=== PATIENT | female | born 1960 | race Caucasian/White ===

== ENCOUNTER 2017-07-05 08:50 | Emergency (ER) | payer OTHER ==
[~2017-07-05] VITALS: Ht 162.6 cm; Wt 122.0 kg
[~2017-07-05 08:50] MED LIST: ADVAIR 250/501 DISK IH; FLEXERIL5 MG PO; LIDODERM 5% P1 PATCH TD; MOTRIN IB200 MG PO; NAPROSYN500 MG PO; NORCO 5/3251 TABLET PO; VITAMIN D3400 UNI2 PO
[2017-07-05] MEDS ORDERED: ULTRAM50 MG PO (11:29)
[2017-07-05 12:37] VITALS: BP 109/70
== END 2017-07-05 12:37 | disposition home or self-care (01) ==
LOC: EME 08:50
DX: M17.11 Unilateral primary osteoarthritis, right knee (principal); M79.89 Other specified soft tissue disorders; Z87.891 Personal history of nicotine dependence; Z91.041 Radiographic dye allergy status
CPT/HCPCS: 73564; 93971; 99281; 99283

== ENCOUNTER 2017-10-21 12:05 | Emergency (ER) | payer OTHER ==
[~2017-10-21] VITALS: Ht 165.1 cm; Wt 122.9 kg
[~2017-10-21 12:05] MED LIST changes: +ULTRAM50 MG PO
[2017-10-21] MEDS ORDERED: PREDNISONE5 MG PO (15:15)
[2017-10-21 15:28] VITALS: BP 143/88
== END 2017-10-21 15:29 | disposition home or self-care (01) ==
LOC: EME 12:05
DX: J02.9 Acute pharyngitis, unspecified (principal); Z91.040 Latex allergy status; Z87.891 Personal history of nicotine dependence
CPT/HCPCS: 87651 90; 99281; 99284; J0561; J2930

== ENCOUNTER 2018-01-26 21:07 | Emergency (ER) | payer OTHER ==
[~2018-01-26] VITALS: Ht 165.1 cm; Wt 114.4 kg
[~2018-01-26 21:07] MED LIST changes: +PREDNISONE5 MG PO
[2018-01-26 22:49] LABS: BASOPHIL (%) 0.2 % (0-1); EOSINOPHIL (%) 0.3 % (0-5); HEMATOCRIT 43.2 % (36.0-46.0); HEMOGLOBIN 14.3 G/DL (11.9-15.5); IMMATURE GRANULOCYTE (%) 0.2 % (0.0-0.7); LYMPHOCYTE (%) 23.7 % (15-42); LYMPHOCYTE COUNT 2.1 K/uL (1.0-2.8); MCH 27.7 PG (29.0-34.0); MCHC 33.1 G/DL (30.0-36.0); MCV 83.6 FL (83-99); MONOCYTE (%) 5.6 % (3-12); MONOCYTE COUNT 0.5 K/uL (0-0.8); NEUTROPHIL COUNT 6.1 K/uL (1.8-6.4); PLATELET COUNT 273 K/uL (156-360); RBC DIS.WIDTH-CV 13.5 % (11.8-14.6); RBC DIS.WIDTH-SD 41.1 % (39-53); RED BLOOD COUNT 5.17 M/uL (3.80-5.20); WHITE BLOOD COUNT 8.7 K/uL (4.1-10.2)
[2018-01-26 22:56] LABS: ALBUMIN 4.3 g/dL (3.2-4.8); CHLORIDE 105 mEq/L (99-109); POTASSIUM 4.1 mEq/L (3.7-5.4); SODIUM 141 mEq/L (136-147)
[2018-01-26 22:59] LABS: GLUCOSE 92 mg/dL (70-99); TOTAL PROTEIN 7.6 g/dL (6.4-8.3)
[2018-01-26 23:00] LABS: TOTAL BILIRUBIN 0.5 mg/dL (0.0-1.0)
[2018-01-26 23:02] LABS: ALKALINE PHOSPHATASE 92 IU/L (3-129); CREATININE 0.7 mg/dL (0.6-1.3); GFR ESTIMATE (CALCULATED) > 59 mL/min/
[2018-01-26 23:03] LABS: UREA NITROGEN (BUN) 11 mg/dL (9-23)
[2018-01-26 23:04] LABS: AST (GOT) 22 IU/L (2-34); DIRECT BILIRUBIN 0.2 mg/dL (0.0-0.3)
[2018-01-26 23:05] LABS: ALT (GPT) 23 IU/L (3-49)
[2018-01-26 23:18] VITALS: BP 133/82
[2018-01-27 11:17] LABS: HEPATITIS C ANTIBODY Nonreactive
[2018-01-27 11:19] LABS: HIV-1/2 AB/AG COMBO Nonreactive
[2018-01-27 11:24] LABS: HEPATITIS B SURFACE ANTIBODY REACTIVE
== END 2018-01-26 23:22 | disposition home or self-care (01) ==
LOC: EME 21:07
PROVIDERS: Physician Assistant
DX: S61.233A Puncture wound without foreign body of left middle finger without damage to nail, initial encounter (principal); W46.0XXA Contact with hypodermic needle, initial encounter; Y99.0 Civilian activity done for income or pay; Z87.891 Personal history of nicotine dependence; M19.90 Unspecified osteoarthritis, unspecified site; Z91.041 Radiographic dye allergy status; Z91.040 Latex allergy status
CPT/HCPCS: 80048; 80076; 85025; 86706; 86803; 87389; 99281; 99284

== ENCOUNTER 2018-06-16 16:58 | Emergency (ER) | payer OTHER ==
[~2018-06-16] VITALS: Ht 162.6 cm; Wt 118.9 kg
[2018-06-16 17:40] LABS: BASOPHIL (%) 0.4 % (0-1); EOSINOPHIL (%) 1.3 % (0-5); EOSINOPHIL COUNT 0.1 K/uL (0-0.3); HEMATOCRIT 38.8 % (36.0-46.0); HEMOGLOBIN 13.1 G/DL (11.9-15.5); IMMATURE GRANULOCYTE (%) 0.3 % (0.0-0.7); LYMPHOCYTE (%) 23.4 % (15-42); LYMPHOCYTE COUNT 1.7 K/uL (1.0-2.8); MCHC 33.8 G/DL (30.0-36.0); MCV 82.9 FL (83-99); MONOCYTE (%) 8.9 % (3-12); MONOCYTE COUNT 0.6 K/uL (0-0.8); NEUTROPHIL (%) 65.7 % (45-76); NEUTROPHIL COUNT 4.6 K/uL (1.8-6.4); PLATELET COUNT 266 K/uL (156-360); RBC DIS.WIDTH-CV 13.8 % (11.8-14.6); RED BLOOD COUNT 4.68 M/uL (3.80-5.20); WHITE BLOOD COUNT 7.1 K/uL (4.1-10.2)
[2018-06-16 17:51] LABS: CHLORIDE 105 mEq/L (99-109); POTASSIUM 4.2 mEq/L (3.7-5.4); SODIUM 139 mEq/L (136-147)
[2018-06-16 17:52] LABS: GLUCOSE 98 mg/dL (70-99)
[2018-06-16 17:56] LABS: CREATININE 0.6 mg/dL (0.6-1.3); GFR ESTIMATE (CALCULATED) > 59 mL/min/
[2018-06-16 17:57] LABS: UREA NITROGEN (BUN) 11 mg/dL (9-23)
[2018-06-16 18:01] LABS: TROP-I INTERPRETATION NEGATIVE; TROPONIN-I < 0.01 ng/mL (0.0-0.30)
[2018-06-16] MEDS ORDERED: ZOFRAN ODT4 MG PO (21:13)
[2018-06-16] MEDS ORDERED: ANTIVERT25 MG PO (21:13)
[2018-06-16 21:36] VITALS: BP 122/62
== END 2018-06-16 21:36 | disposition home or self-care (01) ==
LOC: EME 16:58
PROVIDERS: Physician Assistant
DX: R42 Dizziness and giddiness (principal); R11.2 Nausea with vomiting, unspecified; Z87.891 Personal history of nicotine dependence; Z91.040 Latex allergy status; Z91.041 Radiographic dye allergy status
CPT/HCPCS: 70450; 80048; 84484; 85025; 93005; 99281; 99285; J2405; J7040